=== PATIENT | female | born 1990 | race Caucasian/White ===

== ENCOUNTER 2024-01-06 11:28 | Observation (INO) | payer OTHER, SELFPAY ==
[2024-01-06 11:48] VITALS: BP 154/93
[2024-01-06 12:28] LABS: Hematocrit 32.3 % (37.0-47.0); Hemoglobin 10.3 g/dL (12.0-16.0); Mean Corp Hgb Conc. 31.9 g/dL (33.0-37.0); Mean Corpuscular Hgb 24.9 pg (27.0-31.0); Mean Corpuscular Volume 78.2 fL (81.0-99.0); Mean Platelet Volume 11.9 fL (7.4-10.4); Platelet Count 187 10^3/uL (130-400); Red Blood Cell Count 4.13 10^6/uL (4.20-5.40); Red Cell Dist. Width 14.2 % (11.5-14.5)
[2024-01-06 12:31] LABS: Urine Albumin Negative (Neg - Trace); Urine Bilirubin Negative (Negative); Urine Character Clear (Clear); Urine Color Yellow; Urine Glucose Negative (Negative); Urine Ketone Trace (Negative); Urine Leukocyte Negative (Negative); Urine Nitrite Negative (Negative); Urine Occult Blood Negative (Negative); Urine Specific Gravity 1.005 (<1.030); Urine Urobilinogen Negative (Neg - 1+)
[2024-01-06 12:42] LABS: ALT (SGPT) 12 U/L (0-35); AST (SGOT) 20 U/L (14-36); Alkaline Phosphatase 99 U/L (38-126); Blood Urea Nitrogen 8 mg/dl (7-17); Calcium 9.1 mg/dl (8.4-10.2); Carbon Dioxide 21 mmol/L (22-30); Chloride 104 mmol/L (98-107); Estimated Creatinine Clearance > 125 ml/min; Glucose 79 mg/dl (70-99); Potassium 4.1 mmol/L (3.5-5.1); Sodium 138 mmol/L (135-145); Total Bilirubin 0.3 mg/dl (0.2-1.3); Total Protein 6.9 g/dl (6.3-8.2); eGFR > 60.00
[2024-01-06 12:49] LABS: Protein/creatinine Ratio 0.5; Urine Protein 15 mg/dl
== END 2024-01-06 13:11 | disposition home or self-care (01) ==
LOC: LDRP 11:28
PROVIDERS: ADMITTING PHYSICIAN Obstetrics & Gynecology
DX: O47.03 False labor before 37 completed weeks of gestation, third trimester (principal); Z3A.35 35 weeks gestation of pregnancy; O09.523 Supervision of elderly multigravida, third trimester; O99.013 Anemia complicating pregnancy, third trimester; D64.9 Anemia, unspecified; Z88.0 Allergy status to penicillin
CPT/HCPCS: 80053; 81003; 82570; 84156; 85027; 87070; G0378

== ENCOUNTER 2024-01-23 09:51 | Inpatient (IN) | payer OTHER, SELFPAY ==
[2024-01-23 10:14] VITALS: BP 138/90
[2024-01-23] MEDS: LR 1000 IV ×2 (10:45→14:34)
[2024-01-23] MEDS: TUMS CHEWABLE TABLET 400 MG PO (11:25)
[2024-01-23] MEDS: PITOCIN 30 UNITS/NSS 500 ML IV ×2 (11:25→16:30)
[2024-01-23 11:32] LABS: % Basophils 0.5 % (0-2); % Eosinophils 0.5 % (0-6); % Immature Granulocytes 0.5 % (0-0.5); % Lymphocytes 20.5 % (20.5-51.1); % Monocytes 7.7 % (1.7-9.3); % Neutrophils 70.3 % (42.2-75.2); Absolute Lymphocytes 1.4 10^3/uL (1.2-3.4); Absolute Monocytes 0.5 10^3/uL (0.1-0.6); Absolute Neutrophils 4.7 10^3/uL (1.4-6.5); Hematocrit 30.5 % (37.0-47.0); Hemoglobin 9.7 g/dL (12.0-16.0); Mean Corp Hgb Conc. 31.8 g/dL (33.0-37.0); Mean Corpuscular Hgb 24.4 pg (27.0-31.0); Mean Corpuscular Volume 76.8 fL (81.0-99.0); Mean Platelet Volume 11.9 fL (7.4-10.4); Nucleated Red Blood Cells % 0 %; Platelet Count 181 10^3/uL (130-400); Red Blood Cell Count 3.97 10^6/uL (4.20-5.40); Red Cell Dist. Width 14.6 % (11.5-14.5); White Blood Cell Count 6.6 10^3/uL (4.8-10.8)
[2024-01-23 11:52] LABS: ALT (SGPT) 12 U/L (0-35); AST (SGOT) 18 U/L (14-36); Albumin 3.5 g/dl (3.5-5.0); Alkaline Phosphatase 96 U/L (38-126); Blood Urea Nitrogen 8 mg/dl (7-17); Calcium 8.8 mg/dl (8.4-10.2); Carbon Dioxide 21 mmol/L (22-30); Chloride 108 mmol/L (98-107); Estimated Creatinine Clearance > 125 ml/min; Glucose 81 mg/dl (70-99); Potassium 4.2 mmol/L (3.5-5.1); Sodium 137 mmol/L (135-145); Total Bilirubin 0.2 mg/dl (0.2-1.3); Total Protein 6.1 g/dl (6.3-8.2); eGFR > 60.00
[2024-01-23] MEDS: SUBLIMAZE 100 MCG EPIDURAL (14:33)
[2024-01-23] MEDS: FENTANYL/BUPIVACAINE 100 EPIDURAL (14:37)
[2024-01-24] MEDS: MOTRIN 600 MG PO ×3 (00:13→18:20)
[2024-01-24] MEDS: TYLENOL 650 MG PO (05:19)
[2024-01-24 05:43] LABS: Hematocrit 29.8 % (37.0-47.0); Hemoglobin 9.5 g/dL (12.0-16.0); Mean Corp Hgb Conc. 31.9 g/dL (33.0-37.0); Mean Corpuscular Hgb 24.2 pg (27.0-31.0); Platelet Count 160 10^3/uL (130-400); Red Blood Cell Count 3.92 10^6/uL (4.20-5.40); Red Cell Dist. Width 14.8 % (11.5-14.5); White Blood Cell Count 8.1 10^3/uL (4.8-10.8)
[2024-01-24 06:04] LABS: ALT (SGPT) 12 U/L (0-35); AST (SGOT) 22 U/L (14-36); Alkaline Phosphatase 83 U/L (38-126); Blood Urea Nitrogen 5 mg/dl (7-17); Calcium 8.3 mg/dl (8.4-10.2); Carbon Dioxide 19 mmol/L (22-30); Chloride 108 mmol/L (98-107); Estimated Creatinine Clearance > 125 ml/min; Glucose 77 mg/dl (70-99); Potassium 4.2 mmol/L (3.5-5.1); Sodium 137 mmol/L (135-145); Total Bilirubin 0.3 mg/dl (0.2-1.3); Total Protein 5.6 g/dl (6.3-8.2); eGFR > 60.00
[2024-01-24] MEDS: FEOSOL 325 MG PO (08:14)
[2024-01-24] MEDS: SENOKOT-S 1 TABLET PO (08:14)
[2024-01-25] MEDS: MOTRIN 600 MG PO ×2 (00:22→08:45)
[2024-01-25] MEDS: FEOSOL 325 MG PO (08:43)
[2024-01-25] MEDS: TYLENOL 650 MG PO (08:45)
== END 2024-01-25 12:02 | disposition home or self-care (01) | DRG 807 ==
LOC: LDRP 09:51
PROVIDERS: Student in an Organized Health Care Education/Training Program; ADMITTING PHYSICIAN Obstetrics & Gynecology; ATTENDING PHYSICIAN Obstetrics & Gynecology
PROC: 0UQGXZZ Repair Vagina, External Approach (ICD-10-PCS; 2024-01-23)
PROC: 3E033VJ Introduction of Other Hormone into Peripheral Vein, Percutaneous Approach (ICD-10-PCS; 2024-01-23)
PROC: 10907ZC Drainage of Amniotic Fluid, Therapeutic from Products of Conception, Via Natural or Artificial Opening (ICD-10-PCS; 2024-01-23)
PROC: 10E0XZZ Delivery of Products of Conception, External Approach (ICD-10-PCS; 2024-01-23)
PROC: 4A1HXCZ Monitoring of Products of Conception, Cardiac Rate, External Approach (ICD-10-PCS; 2024-01-23)
DX: O14.04 Mild to moderate pre-eclampsia, complicating childbirth (principal); Z37.0 Single live birth; O99.02 Anemia complicating childbirth; O71.4 Obstetric high vaginal laceration alone; Z3A.38 38 weeks gestation of pregnancy; Z88.0 Allergy status to penicillin
CPT/HCPCS: 88307; 80053; 85025; 85027; 86850; 86900; 86901